=== PATIENT | female | born 1995 | race Hispanic/Latino ===

== ENCOUNTER 2018-07-12 04:52 | Day surgery (SDC) | payer SELFPAY ==
[2018-07-12 07:00] LABS: #Basophils 0.1 thou/uL (0.0-0.2); #Eosinphils 0.2 thou/uL (0.0-0.7); #Lymphocytes 2.3 thou/uL (1.20-3.40); #Monocytes 0.7 thou/uL (0.11-0.59); %Basophils 0.8 % (0.0-1.0); %Eosinophils 1.8 % (0.0-10.0); %Lymphocytes 24.5 % (21.0-51.0); %Neutrophils 64.9 % (42.0-75.0); Hemoglobin 14.7 g/dL (12.0-16.0); Mean Corpuscular HGB CONC 32.8 g/dL (32.0-36.0); Mean Corpuscular Hemoglobin 29.6 pg (27.0-31.0); Mean Corpuscular Volume 90.2 fL (78.0-98.0); Mean Platelet Volume 8.3 fL (7.4-10.4); Platelet Count 250 thou/uL (130-400); RBC Distribution Width 12.3 % (11.5-14.5); Red Blood Cell (RBC) Count 4.96 mill/uL (4.20-5.40); White Blood Cell (WBC) Count 9.3 thou/uL (4.8-10.8)
[2018-07-12 07:16] LABS: ALT (SGPT) 49 U/L (8-55); AST (SGOT) 42 U/L (5-34); Albumin 4.5 g/dL (3.5-5.0); Alkaline Phosphatase 98 U/L (40-150); Anion Gap 16 mmol/L (10-20); BUN (Urea Nitrogen) 17 mg/dL (7.0-18.7); Bilirubin, Total 0.7 mg/dL (0.2-1.2); Calc. Creatinine Clearance 0 mL/min (70-130); Calcium 10.4 mg/dL (7.8-10.44); Carbon Dioxide 21 mmol/L (22-29); Chloride 108 mmol/L (98-107); Estimated GFR-MDRD 84; Globulin 3.6 g/dL (2.4-3.5); Glucose 83 mg/dL (70-105); Potassium 3.7 mmol/L (3.5-5.1); Protein, Total 8.1 g/dL (6.0-8.3); Sodium 141 mmol/L (136-145)
[2018-07-12 07:45] LABS: Bilirubin Negative (Negative); Blood, Urine Negative (Negative); Clarity CLEAR (Clear); Glucose, Urine (Dipstick) Negative (Negative); Leukocyte Negative (Negative); Nitrite Negative (Negative); Protein, Urine (Dipstick) Negative (Neg-Trace); Specific Gravity, Urine 1.006 (1.002-1.036); Urobilinogen 0.2 mg/dL (0.2-1.0)
--- NOTE | 2018-07-12 08:14 | ULT ---
GALLBLADDER ULTRASOUND: INDICATION: Abdominal pain. FINDINGS: There is increased echogenicity of the imaged portions of the liver. Portions of the liver are not w ell visualized for comment. There is moderate distention of the gallbladder. Increased echogenicity persisting at the gallbladder neck is present, with shadowing, indicative of an impacted gallstone. The common duct is normal at 3 mm, where visualized. Leigh's sign is reported as positive. No asc ites is seen. IMPRESSION: 1. Findings which suggest impacted stone to the gallbladder neck with moderate gallbladder distentio n and a positive Leigh's sign. No discrete gallbladder wall thickening, however, recommend clinical correlation for evidence of developing, acute cholecystitis. 2. Hepatic steatosis. POS: [facility]
[2018-07-12] MEDS ORDERED: Morphine 4 MG/ML VIAL ONE (08:51)
[2018-07-12] MEDS ORDERED: Piperacillin/Tazobactam 4.5 GM VIAL ONE (08:51)
[2018-07-12] MEDS ORDERED: Ondansetron PF 4 MG/2 ML Vial ONE ×2 (08:51→15:04)
[2018-07-12 09:33] LABS: PTT 29.6 SEC (22.9-36.1); Prothrombin Time 13.3 SEC (12.0-14.7)
[2018-07-12 10:04] LABS: BHCG - Serum Negative (NEGATIVE); Pregs Control Background? CLEAR/WHITE (CLR/WHITE); Pregs Control Bar Appear? YES (CONTROL BAR)
--- NOTE | 2018-07-12 10:16 | RAD ---
RADIOGRAPH CHEST 1 VIEW: HISTORY: A 22-year-old female for preoperative clearance. FINDINGS: There are no air space densities, pulmonary edema, pneumothorax, or cardiomegaly. The lateral costop hrenic angles are sharp. IMPRESSION: No acute cardiopulmonary findings. sae [] POS: [facility]
[2018-07-12] MEDS ORDERED: Meperidine HCl/PF 25 MG/ML VIAL ONE (10:20)
[2018-07-12] MEDS ORDERED: Fentanyl 100 MCG/2 ML VIAL ONE ×3 (10:20→12:21)
[2018-07-12] MEDS ORDERED: Famotidine/PF 20 mg/2ml Vial ONE (10:20)
[2018-07-12] MEDS ORDERED: Bupivacaine/Epinephrine 0.25% 30 ML VIAL ONE (10:22)
--- NOTE | 2018-07-12 10:35 | HP ---
HISTORY OF PRESENT ILLNESS: Ms. Rodriguez is a 22-year-old obese woman, who presented to the emergency department with recurrent epigastric to right upper quadrant abdominal pain, which is usually postprandial in nature. She was awoken early this morning approximately 0300 hours by severe epigastric to right upper quadrant abdominal pain, which failed to resolve. The pain is in fact radiating to her back. At this time, pain is associated with one episode of nausea and nonbilious emesis. She had tacos for dinner last night. She denies any fevers or chills. PAST MEDICAL HISTORY: She denies any previous medical problems. PAST SURGICAL HISTORY: She has had no previous surgeries. SOCIAL HISTORY: She is single, lives independently. She works in the construction industry. She denies any cigarette smoking or illicit drug abuse. She consumes ethanol moderately and occasionally. PREHOSPITALIZATION MEDICATIONS: None. ALLERGIES: THE PATIENT DENIES ANY KNOWN DRUG ALLERGIES. FAMILY HISTORY: Denies any family history of diabetes mellitus, hypertension, heart disease, or cancer. She is a G0, P0. Last menstrual period was last month 06/24/2018. REVIEW OF SYSTEMS: Ten-point review of systems essentially unremarkable except as stated in past medical history and chief complaint. PHYSICAL EXAMINATION: GENERAL: Reveals a 22-year-old obese woman, who otherwise appears in no acute distress. VITAL SIGNS: Include blood pressure 115/69, pulse is 94, respiratory rate is 16, temperature 98.2 degrees Fahrenheit, oxygen saturation is 100% on room air. HEENT: Reveals normocephalic and atraumatic. She has no scleral icterus present. HEART: Reveals regular rate and rhythm. No murmurs or gallops auscultated. LUNGS: Clear to auscultation bilaterally. Breathing, regular, nonlabored. ABDOMEN: Soft and obese with epigastric right upper quadrant tenderness to palpation. She has a positive Leigh sign. Liver and spleen otherwise nonpalpable below costal margin. NEUROLOGIC: Reveals no focal deficits present. LABORATORY FINDINGS: Include CBC with 9300 white blood cells. Hemoglobin and hematocrit 14.7 and 44.7 respectively. Platelet count is 250,000. Metabolic profile; sodium 141, potassium is 3.7, chloride is 108, bicarb is 21, BUN 17, creatinine 0.85, glucose 83, total bilirubin 0.7. AST and ALT noted at 42 and 49 respectively. Alkaline phosphatase is normal at 98. Serum lipase is normal at 43. I have personally reviewed the abdominal ultrasound, which reveals a dilated gallbladder with impact in solitary gallstone at the gallbladder neck. There is small pericholecystic fluid present. Gallbladder wall is minimally thickened. The common bile duct size is normal for this patient's age at 3.1 mm in diameter. IMPRESSION: Acute cholecystitis with cholelithiasis. RECOMMENDATIONS: Laparoscopic cholecystectomy. The above findings and recommendation discussed with the patient, who indicates understanding, information given her today in the presence of her nurse. Her family were also present at bedside. I have answered their questions. The patient is going to consent for this admission and surgical intervention. Job ID: [id number]
[2018-07-12] MEDS ORDERED: Midazolam HCl 2 mg/2 ml Vial ONE (10:37)
--- NOTE | 2018-07-12 14:00 | OP ---
DATE OF PROCEDURE: 07/12/2018 PREOPERATIVE DIAGNOSIS: Acute cholecystitis with cholelithiasis. POSTOPERATIVE DIAGNOSIS: Acute cholecystitis with cholelithiasis. PROCEDURE PERFORMED: Laparoscopic cholecystectomy. ANESTHESIA: General endotracheal. ESTIMATED BLOOD LOSS: Less than 5 mL. FLUIDS GIVEN: 1000 mL of crystalloids. COUNTS: Sponge and instrument counts were verified as correct x2. COMPLICATIONS: None apparent at the time of operation. INDICATIONS FOR PROCEDURE: A 22-year-old obese woman, presented with recurrent epigastric right upper quadrant abdominal pain. Clinical radiographic examination was consistent with acute cholecystitis, cholelithiasis for which the patient was brought to the operating room for laparoscopic cholecystectomy. Findings are consistent with elongated gallbladder in the usual anatomic location partially encased by omental adhesions. DESCRIPTION OF PROCEDURE: Informed consent was obtained from the patient. She was brought to the operating room and placed in supine position. Following general anesthesia, abdomen was sterilely prepped and draped in usual fashion. The skin below the umbilicus was infiltrated with 0.25% Marcaine with epinephrine. A small curvilinear infraumbilical incision was made using 11 scalpel. Umbilical stalk was grasped with a Fabiola and elevated. A Veress needle was inserted through the incision and placed in the peritoneal cavity through which the abdomen was insufflated with 3 L of CO2 gas. Intraabdominal pressure was noted at 2 mmHg. Following abdominal insufflation, Veress needle was removed. A 5-mm trocar was introduced using a Visiport under laparoscopy. Laparoscopy confirmed proper placement of the port, no injuries to underlying structures. Additional laparoscopy revealed gallbladder in the usual anatomic location partially encased by omental adhesions. Under direct laparoscopy, a 12-mm epigastric and two 5 mm right lateral subcostal ports were placed after the overlying skin infiltrated with 0.25% Marcaine with epinephrine and appropriate incision was made. The patient was placed in a reverse Trendelenburg position, rotated to her left. I introduced a Prestige grasper through the right lateral subcostal port grasping the fundus of the gallbladder, which was elevated cephalad. Omental adhesions were then taken down using a [place] dissector with cautery. A second Prestige grasper was introduced through the medial subcostal port grasping the Sage pouch, which was retracted laterally. Cystic duct was dissected free from surrounding structures at the triangle of Calot. The duct was divided between clips, applying 2 clips proximally and 1 clip at the junction of the cystic duct and gallbladder. Cystic artery was dissected free from surrounding structures and divided between clips in a similar fashion. Gallbladder itself was removed from the liver bed with good hemostasis. Finding no other pathology, laparoscopy was terminated. Fascia of the epigastric port was closed using 0 Vicryl suture and Endoclosure device on the laparoscopy. The abdomen was desufflated. All ports and instruments were removed and accounted for. Skin incisions were closed using 4-0 Monocryl suture in subcuticular fashion. Dermabond was applied over incisional closure. The patient tolerated the operation without any apparent complication and was returned to recovery room in satisfactory condition. Job ID: [id number]
[2018-07-12] MEDS ORDERED: Lidocaine 1% PF 5 ML VIAL ONE (15:04)
[2018-07-12] MEDS ORDERED: Rocuronium Bromide 10 MG/ML (10ML VIAL) ONE (15:04)
[2018-07-12] MEDS ORDERED: Dexamethasone 20 MG/5 ML VIAL ONE (15:04)
[2018-07-12] MEDS ORDERED: Glycopyrrolate 0.2 MG/ML 5 ML SYRINGE ONE (15:04)
[2018-07-12] MEDS ORDERED: PHENYLEPHRINE-NS 100 MCG/ML 10 ML SYRINGE ONE (15:04)
[2018-07-12] MEDS ORDERED: PROPOFOL 200 MG/20 ML VIAL ONE (15:04)
[2018-07-12] MEDS ORDERED: Ketorolac Tromethamine 30 MG/ML VIAL ONE (15:04)
== END 2018-07-12 13:50 | disposition home or self-care (01) ==
LOC: ERS 04:52
PROVIDERS: ATTEND Surgery
PROC: 0FT44ZZ Resection of Gallbladder, Percutaneous Endoscopic Approach (ICD-10-PCS; principal; 2018-07-12)
DX: K80.12 Calculus of gallbladder with acute and chronic cholecystitis without obstruction (principal); E66.9 Obesity, unspecified; Z68.41 Body mass index [BMI] 40.0-44.9, adult
CPT/HCPCS: 36415; 71045; 76705; 80053; 81003; 83690; 84703; 85025; 85610; 85730; 88304; 93005; 96365; 96375; J0131; J1100; J1885; J2001; J2175; J2250; J2270; J2405; J2543; J2704; J3010; S0028

== ENCOUNTER 2019-06-23 12:43 | Day surgery (SDC) | payer SELFPAY ==
[2019-06-23] MEDS ORDERED: hydrALAZINE 20 MG/ML VIAL SLOW IVP PRN (12:56)
[2019-06-23] MEDS ORDERED: Promethazine HCl 12.5 MG in Sodium Chloride 0.9% 50 ML IVPB PRN (12:58)
[2019-06-23] MEDS ORDERED: Lactated Ringer's 1,000 ML IV SCH ×2 (13:00)
--- NOTE | 2019-06-23 14:48 | ULT ---
ABDOMINAL ULTRASOUND COMPLETE: Date: 06/23/2019 HISTORY: Abdominal pain. FINDINGS: Liver echogenicity appears within normal limits. Status post cholecystectomy. Exam is somewhat limite d by body habitus. Common bile duct 0.4 cm. Visualized pancreas, IVC, aorta, and spleen are unremarka ble. The kidneys show no hydronephrosis. No abscess or abnormal fluid collection. IMPRESSION: Status post cholecystectomy. No common duct dilatation. No evidence for other significant acute proce ss. Exam somewhat limited by body habitus. POS: [facility]
--- NOTE | 2019-06-23 15:05 | ULT ---
OB ULTRASOUND: Date: 06/23/2019 HISTORY: Size and dates. No prior care. FINDINGS: Real-time imaging of the pelvis shows a single, viable intrauterine in a somewhat variable presentation. It appears to be more cephalic to transverse. heart rate is 149 bpm. Amniotic flu id is adequate for this stage of . The placenta is anterior in location without evidence of previa. Cervical canal length is 3 cm. Review of anatomy shows normal head, cerebellum, ventricles, 4 chamber heart, stomach, kidneys, cord insertion, bladder, 3 vessel cord, extremities, and spine to all appear unremarkable. measurements are as follows: BPD: 5.0 cm, 21 weeks/1 day HC: 19.1 cm, 21 weeks/3 days AC: 16.8 cm, 21 weeks/6 days FL: 3.5 cm, 21 weeks/1 day IMPRESSION: 1. Single, viable intrauterine in cephalic to transverse presentation. Overall measurement s correspond to a gestational age of 21 weeks and 2 days. Estimated date of delivery is 11/01/2019. 2. Placenta which is anterior in location. POS: [facility]
[2019-06-23] MEDS ORDERED: Famotidine/PF 20 mg/2ml Vial SLOW IVP SCH ×2 (15:15→21:00)
--- NOTE | 2019-06-24 01:36 | SS ---
DATE OF ADMISSION: 06/23/2019 DATE OF DISCHARGE: 06/23/2019 CHIEF COMPLAINT: Transferred from [facility] for and abdominal pain. HISTORY OF PRESENT ILLNESS: Ms. Rodriguez is a 23-year-old G1, P0 with an estimated date of confinement of 10/28/2019 by reported ultrasound at [facility]. She was seen at the [facility] complaining of upper abdominal pain, which she states started while she was working out. She denies associated vaginal bleeding or ruptured membranes. She has been occasionally nauseous, but she has denied vomiting. She also denies fever or chills. The patient is currently awaiting [place] on renewal. PAST MEDICAL HISTORY: None. PAST SURGICAL HISTORY: Cholecystectomy. CURRENT MEDICATIONS: vitamins. ALLERGIES: NO KNOWN ALLERGIES. SOCIAL HISTORY: Denies tobacco, alcohol, or drug use. FAMILY HISTORY: Unremarkable. REVIEW OF SYSTEMS: Positive for intermittent nausea. Negative for fever, chills, ruptured membranes, or vaginal bleeding. PHYSICAL EXAMINATION: VITAL SIGNS: In triage, her blood pressure is 114/60, pulse 86, respirations 16, temperature 98.6. GENERAL: She is pleasant. She is in no acute distress. ABDOMEN: Soft, nontender, and obese. There is no guarding or rebound. PELVIC: Deferred. heart tones by Doppler are positive. Laboratories done at [facility] show a white count of 12.0, hemoglobin and hematocrit are 12.9 and 38.0, platelet count 210,000. Chemistry shows sodium 139, potassium 4.0, CO2 of 24, glucose 92, creatinine 0.6, bilirubin 0.5. AST and ALT are 33 and 49 respectively. Alkaline phosphatase 85, lipase 127. Amylase done here returns within normal limits. Upper abdominal ultrasound is unremarkable. ultrasound shows a single fetus consistent with dates with adequate amniotic fluid in the transverse position. Her cervical length is 3 cm. The patient is given IV fluid and some IV Pepcid. She does feel better. ASSESSMENT: 1. 21 and 6/7th week intrauterine . 2. Upper abdominal pain, possibly musculoskeletal. No evidence of acute abdomen. PLAN: The patient will be dismissed to home. She states she has been told that she can take Tylenol for musculoskeletal aches and pains, and she can also use [id number] Pepcid for any type of reflux she may be experiencing. She voiced understanding of her discharge instructions and will speak with the clinic regarding initiation of care. Job ID: [id number]
== END 2019-06-23 16:00 | disposition home or self-care (01) ==
LOC: L&D/OP 12:43
PROVIDERS: ATTEND Obstetrics & Gynecology
DX: O99.89 Other specified diseases and conditions complicating pregnancy, childbirth and the puerperium (principal); R10.10 Upper abdominal pain, unspecified; Z3A.21 21 weeks gestation of pregnancy
CPT/HCPCS: 36415; 76805; 82150; 93975; S0028